=== PATIENT | male | born 1965 | race Caucasian/White ===

== ENCOUNTER 2017-01-10 13:14 | Emergency (ER) | payer SELFPAY ==
[~2017-01-10] VITALS: Ht 180.3 cm; Wt 88.9 kg
[2017-01-10] MEDS ORDERED: SODIUM CHLORIDE 0.9% 1,000 ML IV ONE (13:26)
[2017-01-10] MEDS ORDERED: SODIUM CHLORIDE 0.9% 1,000ML IVBOLUS ONE (13:30)
[2017-01-10 14:07] LABS: BLOOD UREA NITROGEN 15 mg/dL (7-18)
[2017-01-10 14:13] LABS: ASPARTATE AMINO TRANSFERASE 23 U/L (15-37)
[2017-01-10] MEDS ORDERED: GABA-827 PO (14:40)
[2017-01-10] MEDS ORDERED: HYDROmorphone 1 MG/ML, 1ML IVPush PRN (15:00)
[2017-01-10] MEDS ORDERED: ONDANSETRON 2MG/ML, 2ML IVPush ONE (15:00)
[2017-01-10] MEDS ORDERED: HYDROmorphone 1 MG/ML, 1ML ONE (15:15)
[2017-01-10] MEDS ORDERED: ONDANSETRON 2MG/ML, 2ML ONE (15:15)
[2017-01-10] MEDS ORDERED: OMNIPAQUE 350 MG/ML, 100ML BOTTLE ONE (15:17)
[2017-01-10 16:42] VITALS: BP 106/58
== END 2017-01-10 16:46 | disposition home or self-care (01) ==
LOC: ED 16:21
DX: R10.32 Left lower quadrant pain (principal)
CPT/HCPCS: 36415; 74177; 80053; 81003; 83605; 83690; 85025; 96361; 96374; 96375; 99285; J1170; J2405; J7030; Q9967